=== PATIENT | female | born 1930 | race Caucasian/White ===

== ENCOUNTER 2016-08-02 12:59 | Inpatient (IN) | payer MEDICARE ==
[2016-08-02] VITALS (12 sets, daily range): BP systolic 162–225; BP diastolic 60–90; PULSE 55–88; RESP 18–34; O2SAT 55–99
[~2016-08-02] VITALS: Ht 152.4 cm; Wt 60.7 kg
--- NOTE | 2016-08-02 13:01 | ED.REPORT ---
HPI-Dyspnea / Wheezing Date of Service August 02, 2016 ED Provider: Dr. Juanito Brenner M.D. An 85 year old female with a history of hypertension and atrial fibrillation presents to the ED via EMS from her [facility] accompanied by her family with shortness of breath onset two hours ago. The patient denies chest pain or other symptoms. EMS found the patient with a BP of 214/90 and a pulse ox of 80% on RA. She was found to be in atrial fibrillation en route and was given IV diltiazem prior to arrival. The patient has never had similar symptoms in the past. Nursing Notes Stated Complaint: SHORTNESS OF BREATH Nursing Notes Reviewed: Yes Allergies: Coded Allergies: No Known Allergies (Unverified , 08/02/16) Scheduled Ascorbate Calcium (Vitamin C) 500 Mg Tablet 500 MG PO DAILY Aspirin (Aspirin) 81 Mg Tablet 81 MG PO DAILY Atorvastatin (Lipitor) 20 Mg Tablet 20 MG PO DAILY Calcium Carbonate/Vitamin D3 (Calcium 500 + Vit D 400 Tablet) 1 Each Tablet 1 EACH PO DAILY Cholecalciferol (Vitamin D3) (Vitamin D) 50,000 Unit Capsule 50,000 UNIT PO 2x/ month Diltiazem (Diltiazem) 60 Mg Tablet 60 MG PO BID Donepezil (Donepezil) 10 Mg Tablet 10 MG PO HS Hypromellose (Systane Gel) 10 Gm Gel..gram. 1 APPLIC OCULAR QID Levothyroxine (Levothyroxine) 75 Mcg Tablet 75 MCG PO DAILY Memantine HCl (Namenda-XR) 28 Mg Cap.spr.24 28 MG PO HS Ofloxacin (Ofloxacin) 5 Ml Drops 1 DROP OCULAR QID [place]-3/Dha/Epa/Fish Oil (Fish Oil 500 mg Softgel) 1 Each Capsule 3 EACH PO DAILY Oxybutynin Chloride ER (Oxybutynin Chloride ER) 10 Mg Tab.er.24 10 MG PO DAILY Prednisolone Acetate (Prednisolone Acetate) 5 Ml Drops.susp 1 DROP OCULAR QID Scheduled PRN Acetaminophen (Acetaminophen) 325 Mg Capsule 1-2 EACH PO Q4H PRN PRN For Pain Dextran 70/Hypromellose/Pf (Artificial Tears Drops) 1 Each Droperette 1 DROP BOTH_EYES QID PRN PRN For Eye Irritation Docusate Sodium (Colace) 100 Mg Capsule 100 MG PO DAILY PRN PRN For Constipation General Time Seen by MD: 13:01 Chief Complaint Shortness of breath Hx Obtained From: Patient Arrived By: Ambulance Sudden in Onset?: No Onset Occurred: 1 - 4 hours ago Symptom Duration: Since onset Location: : None Severity: Current: No pain currently Severity: Maximum: No pain Pertinent Negative: Relieved by nothing Recent Healthcare: No recent doctor visit Past Medical History Past Medical History Hypertension Atrial fibrillation Past Surgical History Cataract surgery Smoking History Former Smoker Social History Lives at [place] Other Social History: Good social support, Lives in [facility] Ambulatory Status Independent Review of Systems Constitutional: Denies: Fever Respiratory: Reports: Shortness of breath, Denies: Non-productive cough Complete sys rev & neg: except as marked. GI: Denies: Diarrhea, Vomiting Physical Exam Initial Vital Signs Vital Signs (First) Date Time Temp Pulse Resp B/P Pulse Ox O2 Delivery O2 Flow Rate FiO2 08/02/16 13:09 36.2 55 31 225/83 55 Room Air 08/02/16 13:31 60 Initial VS: Reviewed Head / Eyes: Atraumatic, Normocephalic ENT: Conjunctiva normal, No scleral icterus Neurologic: Alert, Oriented, Nonfocal Psychiatric: Mood/affect normal, Behavior normal General/Constitutional: Awake, Alert Distress / Hydration: Positive: Distress severe Neck: Supple, Full range of motion Respiratory / Chest: Breath sounds = bilat Resp Distress / Stridor: Positive: Resp distress severe Diminished Breath Sounds: Positive: Decreased bilateral Cardiovascular: Heart rate NL, Regular rhythm, Heart sounds NL Lower Ext Edema: Positive: Bilateral 2+ Abdomen: Soft, Non-tender Skin: No rash Color / Condition: Positive: Diaphoresis present Interpretation & Diagnostics Lab Results Interpretation Result Diagram: 08/02/16 1318 08/02/16 1318 Test 08/02/16 13:18 08/02/16 13:30 08/02/16 13:33 08/02/16 14:01 White Blood Count 13.5th/mm3 (3.8-10.1) Red Blood Count 3.76mil/mm3 (3.90-5.20) Hemoglobin 11.3g/dL (12.0-15.6) Hematocrit 33.1% (35.0-46.0) Mean Corpuscular Volume 88.0fL (81-100) Mean Corpuscular Hemoglobin 30.1pg (27.0-35.0) Mean Corpuscular Hemoglobin Concent 34.1% (32.0-37.0) Red Cell Distribution Width 12.7% (12.3-15.4) Platelet Count 327bil/L (150-400) Neutrophils (%) (Auto) 85.3% (40-74) Lymphocytes (%) (Auto) 7.1% (14-46) Monocytes (%) (Auto) 6.8% (4-12) Eosinophils (%) (Auto) 0.1% (0-5) Basophils (%) (Auto) 0.2% (0-3) Prothrombin Time 10.2sec (8.1-12.5) Prothromb Time International Ratio 0.95ratio D-Dimer 1.31mg/L FEU (<0.50) Sodium Level 120mEq/L (134-144) Potassium Level 4.6mEq/L (3.5-5.2) Chloride Level 81mEq/L (97-108) Carbon Dioxide Level 23mmol/L (18-29) Blood Urea Nitrogen 19mg/dL (8-27) Creatinine 0.79mg/dL (0.57-1.00) Estimat Glomerular Filtration Rate 99mL/min (>59) Glucose Level 312mg/dL (60-99) Calcium Level 8.7mg/dL (8.5-10.1) Magnesium Level 1.8mg/dL (1.6-2.6) Total Bilirubin 0.3mg/dL (0.0-1.2) Aspartate Amino Transf (AST/SGOT) 20U/L (0-50) Alanine Aminotransferase (ALT/SGPT) 12U/L (0-32) Alkaline Phosphatase 106U/L (25-165) Troponin T 0.023ug/L (0.0-0.011) Pro-B-Type Natriuretic Peptide 4317pg/mL (0-738) Total Protein 7.2g/dL (6.4-8.4) Albumin 4.1g/dL (3.4-5.0) Lactic Acid Level 0.9mmol/L (0.4-2.0) Urine Color Yellow (YELLOW) Urine Appearance Hazy (CLEAR,HAZY) Urine pH 6.0 (5.0-8.0) Urine Specific [place] 1.030 (1.003-1.035) Urine Protein 300mg/dL (NEG,TRACE) Urine Glucose (UA) 250mg/dL (NEGATIVE) Urine Ketones Negativemg/dL (NEGATIVE) Urine Occult Blood Trace (NEGATIVE) Urine Nitrite Negative (NEGATIVE) Urine Bilirubin Negative (NEGATIVE) Urine Urobilinogen Normalmg/dL (NORMAL) Urine Leukocyte Esterase Negative (NEGATIVE) Urine RBC 0-2/hpf (0-2) Urine WBC 0-5/hpf (0-5) Urine Epithelial Cells Occasional/hpf (NONE-MOD) Urine Crystals Amorphous urates (NONE Urine Bacteria Few/hpf (NONE-FEW) Urine Hyaline Casts None/lpf (NONE) Urine Granular Casts None seen (NONE SEEN) Urine Waxy Casts None seen (NONE SEEN) Urine Red Blood Cell Casts None seen (NONE SEEN) Urine White Blood Cell Casts None seen (NONE SEEN) Urine Mucus None seen (None Seen) Urine Trichomonas None seen (NONE SEEN) Urine Yeast None (NONE SEEN) Urinalysis Comment None Urine Culture Reflexed Not indicated ECG Interpretation ECG Interpretation: Sinus rhythm rate 73 Probable left atrial enlargement Time: 13:36 Interpreted by: ED physician X-Ray Chest Interpretation Chest Xray Interpretation: IMPRESSION: 1. Cardiomegaly and moderate vascular congestion with probable bilateral effusions and basilar atelectasis is suspicious for pulmonary edema/congestive heart failure and clinical correlation is recommended. 2. Please correlate clinically to exclude a superimposed pneumonia. Dictated by: Manny Sawant M.D. on 08/02/2016 at 12:25 View: Portable, 1 view Interpretation / Wet Read by: Interpret - Radiologist Re-Eval/Medical Decision Re-Evaluation/Progress : Time of Eval: 15:13 Patient Status: Condition improved Re-Evaluation/Progress Note: Discussed with patient and family x-ray and lab results, diagnosis, and plan for admit. Patient agrees with plan for care and all questions were addressed. Consultation : Referral / Consult Name: Jose London Consulted With: Hospitalist Call Returned at: 16:00 Hand Mixer: Agrees with eval, Agrees with plan, Accepts admit Counseled Regarding: Diagnosis, Lab results, Need for admission Discharge & Departure Impression: Primary Impression: Congestive heart failure Congestive heart failure type: unspecified congestive heart failure type Congestive heart failure chronicity: acute Qualified Code: I50.9 - Heart failure, unspecified Disposition: ADMITTED TO HOSPITAL Discharge Condition All VS Reviewed: Yes Condition: Improved Crit Care Except Billable Proc Time Spent: 30-74 minutes Services Performed: Patient management by me, Time spent at bedside, Reviewing test results, Reviewing imaging, Discussing patient care, Documentation in record, Time with fam/surrogate Scribe Attestation Portions of this note were transcribed by Mandie Avery. I, Dr. Brenner, personally performed the history, physical exam, and medical decision-making; I reviewed and confirmed the accuracy of the information in the transcribed note. Signed by: Britney Argueta, 08/02/2016, 17:30 Juanito Brenner MD August 02, 2016 13:01 MANDIE AVERY August 02, 2016 13:04
[2016-08-02] MEDS ORDERED: Albuterol-Ipratropium 3 mL Inhalation Solution NEB ONE (13:10)
[2016-08-02] MEDS ORDERED: MethylprednisoLONE Sodium Succinate 62.5 mg/mL 2 mL Inj IVPUSH ONE (13:10)
[2016-08-02] MEDS ORDERED: Albuterol 2.5 mg/3 mL Inhalation Solution NEB ONE (13:10)
[2016-08-02 13:23] LABS: BASOPHILS % (AUTO) 0.2 % (0-3); EOSINOPHILS % (AUTO) 0.1 % (0-5); MONOCYTES % (AUTO) 6.8 % (4-12); Mean Corpuscular Hemoglobin 30.1 pg (27.0-35.0); NEUTROPHILS % (AUTO) 85.3 % (40-74); Platelet Count 327 bil/L (150-400)
[2016-08-02 13:27] LABS: D-Dimer 1.31 mg/L FEU (<0.50); INR 0.95 ratio
--- NOTE | 2016-08-02 13:28 | DRSVH ---
PROCEDURE: X-RAY CHEST ONE VIEW, PORTABLE ([id number]) INDICATIONS: dyspnea TECHNIQUE: One view of the chest was acquired. COMPARISON: None. FINDINGS: Surgical changes and devices: None. Lungs and pleura: Diffuse hazy bibasilar opacities are identified (left greater than right) with part ial obscuration of the diaphragm. The pulmonary vasculature is increased. There is no large pneumot horax. Mediastinum: Mediastinal contours appear normal. Heart size is enlarged. Thoracic aortic atheroscl erosis is present. Bones and chest wall: No suspicious bony lesions. The bone mineralization is diffusely decreased. Overlying soft tissues appear unremarkable. IMPRESSION: 1. Cardiomegaly and moderate vascular congestion with probable bilateral effusions and basilar atele ctasis is suspicious for pulmonary edema/congestive heart failure and clinical correlation is recomme nded. 2. Please correlate clinically to exclude a superimposed pneumonia. Dictated by: Manny Sawant M.D. on 08/02/2016 at 12:25 Approved by: Manny Sawant M.D. on 08/02/2016 at 12:26
[2016-08-02 13:33] LABS: TROPONIN T 0.023 ug/L (0.0-0.011)
[2016-08-02] MEDS ORDERED: Nitroglycerin 2% 1 Gm Ointment TOPICAL SCH (13:35)
[2016-08-02] MEDS ORDERED: Furosemide 10 mg/mL 2 mL Inj IVPUSH ONE ×2 (13:35→20:55)
[2016-08-02 13:44] LABS: Magnesium 1.8 mg/dL (1.6-2.6)
[2016-08-02 14:28] LABS: APPEARANCE,URINE HAZY (CLEAR,HAZY); COLOR,URINE YELLOW (YELLOW); OCCULT BLOOD,URINE TRACE (NEGATIVE); UROBILINOGEN,URINE NORMAL (NORMAL)
[2016-08-02] MEDS ORDERED: ATOR20TA PO (15:51)
[2016-08-02] MEDS ORDERED: OMEG-83 PO (15:51)
[2016-08-02] MEDS ORDERED: LEVO75TA4 PO (15:51)
[2016-08-02] MEDS ORDERED: MEMA28CA PO (15:51)
[2016-08-02] MEDS ORDERED: DILT60TA PO (15:51)
[2016-08-02] MEDS ORDERED: DONE10TA42 PO (15:51)
[2016-08-02] MEDS ORDERED: OFLO5DRO9 OCULAR (15:51)
[2016-08-02] MEDS ORDERED: ASPI-973 PO (15:51)
[2016-08-02] MEDS ORDERED: PRED5DRO6 OCULAR (15:51)
[2016-08-02] MEDS ORDERED: ASCO-294 PO (15:51)
[2016-08-02] MEDS ORDERED: HYPR10GE4 OCULAR (15:51)
[2016-08-02] MEDS ORDERED: OXYB10TA PO (15:51)
[2016-08-02] MEDS ORDERED: CALC-51 PO (15:51)
[2016-08-02] MEDS ORDERED: ACET325C PO (15:54)
[2016-08-02] MEDS ORDERED: DEXT1DRO8 BOTH_EYES (15:54)
[2016-08-02] MEDS ORDERED: CHOL500050 PO (15:54)
[2016-08-02] MEDS ORDERED: DOCU-41 PO (15:54)
[2016-08-02] MEDS ORDERED: Ondansetron 2 mg/mL 2 mL Inj IVPUSH PRN ×2 (16:05→17:50)
[2016-08-02] MEDS ORDERED: Alum-Mag Hydrox-Simeth 30 mL Suspension PO PRN ×2 (16:05→17:50)
--- NOTE | 2016-08-02 17:41 | NUR ---
ED to [facility] Pt arrived via transporter to room 2028. Pt on 6 L oxymask SPO2 95%, denies SOB. HOB Resting now. Care continues.
[2016-08-02] MEDS ORDERED: Polyethylene Glycol (PEG) 17 Gm Powder PO PRN (17:50)
[2016-08-02] MEDS ORDERED: Senna-Docusate 8.6-50 mg Tablet PO PRN (17:50)
--- NOTE | 2016-08-02 17:54 | DRSVH ---
PROCEDURE: CT ANGIO CHEST PULMONARY EMBOLISM ([id number]) INDICATIONS: CHF TECHNIQUE: After the administration of intravenous contrast, 2 mm thick sections acquired from the pulmonary api riana to the posterior costophrenic angles. 3-dimensional maximum intensity projection (MIP) coronal a nd sagittal reformats were then acquired through the thorax. For radiation dose reduction, the follo wing was used: automated exposure control, adjustment of mA and/or kV according to patient size. COMPARISON: [facility], CR, XR CHEST 1VW (PORTABLE), 08/02/2016, 13:04. FINDINGS: Image quality: Excellent. Pulmonary arteries: Pulmonary arteries are normal in size, and demonstrate no intraluminal filling d efects to suggest central pulmonary embolism. Lungs and pleura: There are bilateral [id number] pleural effusions with bibasilar compression atelectasis. There is bilateral subpleural septal thickening and mild ground glass opacity compatibl e with pulmonary edema. No pneumothorax. Central and peripheral airways are patent. Mediastinum: Heart is mildly prominent, without pericardial effusion. No mediastinal or hilar adeno salina. Thoracic aorta is normal in caliber and enhancement. Atherosclerosis. Esophagus is normal in caliber. Small hiatal hernia. Bones and chest wall: No suspicious bony lesions. Ribs and thoracic spine appear intact throughout. Thyroid gland is normal. No axillary or supraclavicular adenopathy. Abdomen: Visualized upper abdominal solid organs appear normal in the early arterial phase of enhanc ement. IMPRESSION: 1. No evidence for central pulmonary emboli. 2. Small to moderate bilateral pleural effusions with bibasilar compression atelectasis. 3. Mild pulmonary edema consistent with clinical diagnosis of CHF. 4. Small hiatal hernia. Dictated by: Yohannes Painter M.D. on 08/02/2016 at 17:48 Approved by: Yohannes Painter M.D. on 08/02/2016 at 17:53
[2016-08-02] MEDS ORDERED: PrednisoLONE 1% 1 mL Ophthalmic Suspension BOTH_EYES SCH (18:30)
[2016-08-02] MEDS ORDERED: Artificial Tears 15 mL Ophthalmic Solution BOTH_EYES PRN (18:30)
--- NOTE | 2016-08-02 18:56 | NUR ---
Eye drops Pt daughter concerned about eye drops for pt's Right Eye. Pt had cataract surgery on 07/27 per daughter, pt has not had her drops all day. Notified MD. Daughter willing to bring medications from home if needed. Care continues.
[2016-08-02] MEDS ORDERED: DILTIAZEM 60 MG PO SCH (20:30)
--- NOTE | 2016-08-02 20:41 | PCM.HPMED ---
Subjective Date of Service August 02, 2016 Primary Provider: Admitting Physician: Jose London Primary Care Physician: Sagrario Carrera PA-C Attending Physician: Jose London Admit Status: From the Emergency Department Chief Complaint: Shortness of breath History of Present Illness: Ms. Galdamez is an 85-year-old lady with a history of hypertension, hyperlipidemia, and memory loss who presented to the emergency department from [facility] with increasing shortness of breath for the past week. She is accompanied by her her daughter Sugey, who is also DPOA and history obtained from patient and daughter. Patient has limited records within our EMR. Per her daughter, patient's shortness of breath historically has been only with exertion. However, she notes a steady decline in the past 6 months to a year with decreased stamina and dyspnea at rest for the past week. Patient denies associated symptoms including: chest pain, palpitation, cough, orthopnea , lower extremity edema, fever or chills. She states that she smoked tobacco from age 41 to 61 and denies diagnosis of COPD. Daughter reports mild dementia and denies history of diabetes, atrial fibrillation and COPD but notes increased urinary incontinence. Patient denies dysuria, hematuria, back or flank pain, diarrhea and constipation. Of note patient states that she had cataract surgery on 07/28. She states that she tolerated the procedure well and it was without complications. Both patient and daughter report elevated blood pressure prior and her diltiazem increased to 60mg twice daily by her PCP. Despite this increase she continued to have elevated blood pressures. She reports a change in vision following her cataract surgery but denies headaches, dizziness, numbness, tingling or focal weakness. Per medics, atrial fibrillation noted on ECG in the field. She was given diltiazem and ECG here showed normal sinus rhythm with rate of 73 and probable left atrial enlargement but no acute ischemic changes. Chest xray showing cardiomegaly and pulmonary edema. CT angio is negative for pulmonary embolism and showing mild pulmonary edema and bilateral pleural effusions. In the ED: vitals 36.2, BP 225/83, HR 55, SpO2 55% on room air, 95% on Bipap, Labs: troponin 0.023, proBNP 4317, wbc 13.5, Hb 11.3, Hct 33.1, plts 327, sodium 120, potassium 4.6, chloride 81, bicarb 23, BUN 19, creatinine 0.79, glucose 213, lactic acid 0.9. She was given Solu-medol 125mg IV, duonebs, 20mg IV furosemide. Review of Systems: A comprehensive review of systems was conducted with the patient and found to be negative except as above in the History of Present Illness. Allergies Coded Allergies: No Known Allergies (Unverified , 08/02/16) Home Medications Ascorbate Calcium 500 MG PO DAILY Aspirin 81 MG PO DAILY Atorvastatin 20 MG PO DAILY Calcium Carbonate/Vitamin D3 1 EACH PO DAILY Cholecalciferol (Vitamin D3) 50,000 UNIT PO 2x/month Diltiazem 60 MG PO BID Donepezil 10 MG PO HS Hypromellose 1 APPLIC OCULAR QID Levothyroxine 75 MCG PO DAILY Memantine HCl 28 MG PO HS Ofloxacin 5 Ml Drops 1 DROP OCULAR QID [place]-3/Dha/Epa/Fish Oil 3 EACH PO DAILY Oxybutynin Chloride ER 10 MG PO DAILY Prednisolone Acetate 5 Ml Drops.susp 1 DROP OCULAR QID Acetaminophen1-2 EACH PO Q4H PRN For Pain Dextran 70/Hypromellose/Pf 1 Each Droperette 1 DROP BOTH_EYES QID PRN For Eye Irritation Docusate Sodium 100 MG PO DAILY PRN For Constipation PMH Essential Hypertension Hyperlipidemia Hypothyroidism Memory loss Hyperglycemia, without diagnosis of diabetes ? Chronic kidney disease, stage 3. BUN/creatinine 17/0.88 on 06/26/16 in [facility] Possible Atrial fibrillation- patient denies, noted by medics on EKG in the field. NSR on arrival. Possible Carotid artery disease-via chart review, recent visit with PCP and ultrasound ordered, not resulted. Vitamin B12 deficiency Osteoporosis Surgical History Cataract surgery (07/27/16) Bilateral knee replacements Family History Patient reports mother and father with heart failure. Denies history of diabetes or cancer. Social History Hx Alcohol Use: Yes (2 glasses of wine/night) Hx Substance Use: No Smoking Status: Former Smoker (Quit 25 yrs ago. ) Living Arrangement: Assisted Living Exam Vital Signs Vital Sign - Last Date Time Temp Pulse Resp B/P Pulse Ox O2 Delivery O2 Flow Rate FiO2 08/02/16 17:45 36.7 82 18 192/90 95 Room Air 08/02/16 17:25 6 5/10/17 13:33 60 Exam General: Elderly female in mild respiratory distress with Bipap mask in place, well nourished, communicating appropriately. HEENT: Normocephalic, atraumatic. External ears without defect. Pupils equal, round, and reactive to light and accommodation. Anicteric sclerae, moist conjunctivae, Oral mucosa moist/pink. Neck: Supple, nontender, difficult to asses JVD due to body habitus but did not appreciate JVD for carotid bruits. No lymphadenopathy or thyromegaly. Cardiovascular: Regular rate and rhythm with no murmurs, rubs, or gallops appreciated Pulmonary: Symmetric chest rise with equal air entry bilaterally, lungs coarse with diffuse crackles, no wheezing. Conversational dyspnea. Abdomen: Bowel tones present. Soft, protuberant, nontender, mildly distended. No hepatosplenomegaly or masses appreciated. Extremities: No clubbing, cyanosis, or edema. Skin: Normal temperature, turgor, and texture; no rashes or ulcerations. Neurological: Cranial nerves grossly intact. No focal deficits. Ambulates with a walker at baseline. Psychiatric: Normal mood and affect. Alert and oriented to person, place, and time. Lab and Diagnostics Labs Laboratory Tests Test 08/02/16 13:18 08/02/16 13:33 08/02/16 14:01 White Blood Count 13.5th/mm3 (3.8-10.1) Red Blood Count 3.76mil/mm3 (3.90-5.20) Hemoglobin 11.3g/dL (12.0-15.6) Hematocrit 33.1% (35.0-46.0) Mean Corpuscular Volume 88.0fL (81-100) Mean Corpuscular Hemoglobin 30.1pg (27.0-35.0) Mean Corpuscular Hemoglobin Concent 34.1% (32.0-37.0) Red Cell Distribution Width 12.7% (12.3-15.4) Platelet Count 327bil/L (150-400) Neutrophils (%) (Auto) 85.3% (40-74) Lymphocytes (%) (Auto) 7.1% (14-46) Monocytes (%) (Auto) 6.8% (4-12) Eosinophils (%) (Auto) 0.1% (0-5) Basophils (%) (Auto) 0.2% (0-3) Prothrombin Time 10.2sec (8.1-12.5) Prothromb Time International Ratio 0.95ratio D-Dimer 1.31mg/L FEU (<0.50) Sodium Level 120mEq/L (134-144) Potassium Level 4.6mEq/L (3.5-5.2) Chloride Level 81mEq/L (97-108) Carbon Dioxide Level 23mmol/L (18-29) Blood Urea Nitrogen 19mg/dL (8-27) Creatinine 0.79mg/dL (0.57-1.00) Estimat Glomerular Filtration Rate 99mL/min (>59) Glucose Level 312mg/dL (60-99) Calcium Level 8.7mg/dL (8.5-10.1) Magnesium Level 1.8mg/dL (1.6-2.6) Total Bilirubin 0.3mg/dL (0.0-1.2) Aspartate Amino Transf (AST/SGOT) 20U/L (0-50) Alanine Aminotransferase (ALT/SGPT) 12U/L (0-32) Alkaline Phosphatase 106U/L (25-165) Troponin T 0.023ug/L (0.0-0.011) Pro-B-Type Natriuretic Peptide 4317pg/mL (0-738) Total Protein 7.2g/dL (6.4-8.4) Albumin 4.1g/dL (3.4-5.0) Lactic Acid Level 0.9mmol/L (0.4-2.0) Urine Color Yellow (YELLOW) Urine Appearance Hazy (CLEAR,HAZY) Urine pH 6.0 (5.0-8.0) Urine Specific [place] 1.030 (1.003-1.035) Urine Protein 300mg/dL (NEG,TRACE) Urine Glucose (UA) 250mg/dL (NEGATIVE) Urine Ketones Negativemg/dL (NEGATIVE) Urine Occult Blood Trace (NEGATIVE) Urine Nitrite Negative (NEGATIVE) Urine Bilirubin Negative (NEGATIVE) Urine Urobilinogen Normalmg/dL (NORMAL) Urine Leukocyte Esterase Negative (NEGATIVE) Urine RBC 0-2/hpf (0-2) Urine WBC 0-5/hpf (0-5) Urine Epithelial Cells Occasional/hpf (NONE-MOD) Urine Crystals Amorphous urates (NONE Urine Bacteria Few/hpf (NONE-FEW) Urine Hyaline Casts None/lpf (NONE) Urine Granular Casts None seen (NONE SEEN) Urine Waxy Casts None seen (NONE SEEN) Urine Red Blood Cell Casts None seen (NONE SEEN) Urine White Blood Cell Casts None seen (NONE SEEN) Urine Mucus None seen (None Seen) Urine Trichomonas None seen (NONE SEEN) Urine Yeast None (NONE SEEN) Urinalysis Comment None Urine Culture Reflexed Not indicated Result Diagram: 08/02/16 1318 08/02/16 1318 X-Rays, CTs and MRIs (08/02/16) X-RAY CHEST ONE VIEW, PORTABLE IMPRESSION: 1. Cardiomegaly and moderate vascular congestion with probable bilateral effusions and basilar atelectasis is suspicious for pulmonary edema/congestive heart failure and clinical correlation is recommended. 2. Please correlate clinically to exclude a superimposed pneumonia. Dictated and approved by: Manny Sawant M.D. on 08/02/2016 at 12:25 (08/02/16) CT ANGIO CHEST PULMONARY EMBOLISM IMPRESSION: 1. No evidence for central pulmonary emboli. 2. Small to moderate bilateral pleural effusions with bibasilar compression atelectasis. 3. Mild pulmonary edema consistent with clinical diagnosis of CHF. 4. Small hiatal hernia. Dictated and approved by: Yohannes Painter M.D. on 08/02/2016 at 17:48 Assessment & Plan 85y/o female with a history of hypertension, hyperlipidemia, and memory loss who presented to the emergency department from [facility] with increasing shortness of breath for the past week. Admitted for probable exacerbation of congestive heart failure and rule out ACS as well as pulmonary embolism. 1. Acute hypoxic respiratory failure, present on admission. Active. -Likely secondary to CHF. Differential includes pulmonary embolism, pneumonia, or less likely asthma/COPD exacerbation. -CT angio- negative for pulmonary embolism. Pulmonary edema/pleural effusions on CXR and CT angio. -WBC 13.5, lactic acid 0.9 -pneumonia less likely -proBNP 4317 -Duonebs q4h prn -Tx underlying cause 2. CHF exacerbation, likely acute on chronic. Present on admission. Active -Uncertain etiology, no prior Echo. Possibly secondary to hypertension, coronary artery disease, or Afib. -proBNP 4317, troponin 0.023 -ECG, CXR and CT angio, as above. -s/p 40mg IV furosemide in the ED -Monitor I/Os, daily weights -Continue diuresis, IV lasix. -Start ACEi, beta royer. -Continue home statin, aspirin -Echocardiogram ordered 3. Hyponatremia. Present on admission. Active. -Likely secondary to CHF. Management as above. -Sodium 120, potassium 5.0 -Check serum and urine osmolality -Fluid restriction -BMP q4h 4. Elevated troponin, present on admission. Active. -Likely due to demand ischemia secondary to hypoxia, hypertension, respiratory failure. Patient without chest pain. -No known hx of coronary artery disease, possible carotid artery stenosis noted at PCP last month, ultrasound ordered- no results. -Will trend 5. Hyperglycemia. Present on admission. Active -No known diagnosis of diabetes, glucose 94 ([facility] 06/26/16) -Glucose 213, 312 -HbA1c pending -Follow CMP -Low dose correctional insulin lispro 6. Possible atrial fibrillation, present on admission. Active. -ECG by medics en route reportedly showed atrial fibrillation. Patient was given diltiazem prior to arrival. -Patient in NSR, rate 70-80s. ECG showed possible left atrial enlargement, no acute ischemic changes. -Admit with telemetry -Continue home aspirin -Echocardiogram ordered 7. Hypertension, chronic. Present on admission. Active. -BP 225/83 at presentation -Continue home diltiazem, 60mg twice daily -Beta-royer, ACEi and diuresis, as above. 8. Hyperlipidemia, chronic. Present on admission. Presumed stable. -Continue home atorvastatin 9. Mild dementia, chronic. Present on admission. Active. -Continue home donepezil, memantine 10. Hypothyroidism, chronic. Present on admission. Presumed stable. -Continue home levothyroxine Acetaminophen-fever/headache/mild/moderate pain Antiemetics, as needed Bowel regimen, as needed. Disposition: Patient admitted under inpatient status with expected length of stay > 2 midnights for severity of present symptoms, complexities of treatment plan and risk for adverse event. Pain Evaluation: Adequate Pain Control VTE Prophylaxis: Sub-Q Heparin (Unfractionated) Resuscitation Status: CPR: Attempt Resuscitation Attending Statement The patient was seen and examined together with Resident/House-staff on 08/02/16 and I agree with the history, exam and plan as outlined in the note above. Caryl Key DO August 02, 2016 17:56 Jose London August 17, 2016 17:10
[2016-08-02] MEDS ORDERED: Albuterol-Ipratropium 3 mL Inhalation Solution NEB PRN (20:50)
[2016-08-02 21:25] LABS: OSMOLALITY, URINE 580 mOs/kH2O (250-1200)
[2016-08-02] MEDS: Artificial Tears 15 mL Ophthalmic Solution AFFECT_EYE SCH (22:13)
[2016-08-02] MEDS: Sodium Chloride LOK Flush 10 mL Syringe IVFLUSH SCH (22:16)
[2016-08-03] VITALS (12 sets, daily range): BP systolic 141–168; BP diastolic 61–77; PULSE 74–86; RESP 14–22; O2SAT 95–99
[2016-08-03] MEDS: PrednisoLONE 1% 5 mL Ophthalmic Suspension BOTH_EYES SCH ×5 (00:41→20:07)
--- NOTE | 2016-08-03 01:54 | NUR ---
BiPAP Pt c/o SOB at start of shift, on 6L oxy-mask. Pt and pt family stated she was eating and may have aspirated a small amount of liquid. Pt's sats were stable in low 90's after O2 increased to 9L oxy mask. Pt requested to go on BiPAP @ that point. Pt sating high 90's on 50% FIO2. No other issues noted at this time. Addendum: 08/03/16 at 0614 by KANE SIMPSON RN Pt slept extremely well with BiPAP on all night. Pt removed from BiPAP around 0500 and put back on 6L oxy-mask with no issues.
[2016-08-03 03:23] LABS: Phosphorus 4.8 mg/dL (2.5-4.9)
[2016-08-03] MEDS: Artificial Tears 15 mL Ophthalmic Solution AFFECT_EYE SCH ×4 (05:00→20:06)
[2016-08-03 08:05] LABS: BASOPHILS % (AUTO) 0 % (0-3); EOSINOPHILS % (AUTO) 0.1 % (0-5); MONOCYTES % (AUTO) 1.9 % (4-12); Mean Corpuscular Hemoglobin 30.3 pg (27.0-35.0); Mean Corpuscular Volume 88.9 fL (81-100); NEUTROPHILS % (AUTO) 92.4 % (40-74); Platelet Count 265 bil/L (150-400)
[2016-08-03] MEDS: Sodium Chloride LOK Flush 10 mL Syringe IVFLUSH SCH ×2 (08:11→16:08)
[2016-08-03] MEDS: Heparin 5,000 Unit/mL Inj SUBQ SCH ×2 (08:11→16:07)
--- NOTE | 2016-08-03 13:27 | PCM.PNMED ---
Subjective Date of Service August 03, 2016 Subjective 85y/o female with a history of hypertension, hyperlipidemia, and memory loss who presented to the emergency department from [facility] living [facility] with increasing shortness of breath for the past week. Admitted for probable exacerbation of congestive heart failure and rule out ACS as well as pulmonary embolism. Admitted to [facility] with telemetry on 6L oxymask. Per nursing, patient reported shortness of breath with the oxymask. O2 sats stable in low 90s with increase to 9L but patient requested to go back on Bipap. She is back on 6L oxymask this morning without issues and maintaining oxygen sats in mid 90s. She states that her breathing has improved overnight and she is without complaint. She denies chest pain, abdominal pain, nausea or vomiting. Patient's daughter reports possible aspiration of oral secretions last night and states that this is a new occurrence with one prior episode at home. Exam Vital Signs Vital Sign - Last Date Time Temp Pulse Resp B/P Pulse Ox O2 Delivery O2 Flow Rate FiO2 08/03/16 11:19 37.0 85 18 152/70 98 OxyMask 6.00 08/03/16 00:31 50 Intake and Output 08/02/16 08/02/16 08/03/16 Cumulative From/Thru 15:00 23:00 07:00 08/02/16 13:09 - 08/03/16 05:21 Intake Total 100 ml 100 ml Output Total 1100 ml 1100 ml Balance -1000 ml -1000 ml Intake Oral 100 ml 100 ml Output Urine Total 1100 ml 1100 ml # Bowel Movements 1 1 Exam General: Elderly female in no acute distress on 6L oxymask, well nourished, communicating appropriately, speaking in full sentences. HEENT: Normocephalic, atraumatic. Pupils equal, round, and reactive to light and accommodation. Anicteric sclerae, moist conjunctivae, Oral mucosa moist/ pink. Neck: Supple, nontender, difficult to asses JVD due to body habitus but did not appreciate JVD for carotid bruits. Cardiovascular: Regular rate and rhythm with no murmurs, rubs, or gallops appreciated Pulmonary: Symmetric chest rise with equal air entry bilaterally, lungs coarse with mild bibasilar crackles, no wheezing. Abdomen: Bowel tones present. Soft, protuberant, nontender,nondistended. Extremities: Trace edema of the feet bilaterally. No clubbing, cyanosis. Skin: Normal temperature, turgor, and texture; no rashes or ulcerations. Neurological: Cranial nerves grossly intact. No focal deficits. Ambulates with a walker at baseline. IVs and Medications Medications Reviewed: Medications were reviewed in detail Lab and Diagnostics Laboratory Tests Test 08/02/16 13:30 08/02/16 13:33 08/02/16 13:54 08/02/16 14:01 Hemoglobin A1c 5.7% (4.8-5.6) Lactic Acid Level 0.9mmol/L (0.4-2.0) Urine Osmolality 580mOs/kH2O (250-1200) Urine Random Sodium 48mEq/L Osmolality 262 (275-300) Urine Color Yellow (YELLOW) Urine Appearance Hazy (CLEAR,HAZY) Urine pH 6.0 (5.0-8.0) Urine Specific [place] 1.030 (1.003-1.035) Urine Protein 300mg/dL (NEG,TRACE) Urine Glucose (UA) 250mg/dL (NEGATIVE) Urine Ketones Negativemg/dL (NEGATIVE) Urine Occult Blood Trace (NEGATIVE) Urine Nitrite Negative (NEGATIVE) Urine Bilirubin Negative (NEGATIVE) Urine Urobilinogen Normalmg/dL (NORMAL) Urine Leukocyte Esterase Negative (NEGATIVE) Urine RBC 0-2/hpf (0-2) Urine WBC 0-5/hpf (0-5) Urine Epithelial Cells Occasional/hpf (NONE-MOD) Urine Crystals Amorphous urates (NONE Urine Bacteria Few/hpf (NONE-FEW) Urine Hyaline Casts None/lpf (NONE) Urine Granular Casts None seen (NONE SEEN) Urine Waxy Casts None seen (NONE SEEN) Urine Red Blood Cell Casts None seen (NONE SEEN) Urine White Blood Cell Casts None seen (NONE SEEN) Urine Mucus None seen (None Seen) Urine Trichomonas None seen (NONE SEEN) Urine Yeast None (NONE SEEN) Urinalysis Comment None Urine Culture Reflexed Not indicated Test 08/02/16 18:35 08/03/16 00:00 08/03/16 02:19 08/03/16 10:00 Sodium Level 120mEq/L (134-144) 123mEq/L (134-144) Potassium Level 5.0mEq/L (3.5-5.2) 5.2mEq/L (3.5-5.2) Chloride Level 82mEq/L (97-108) 84mEq/L (97-108) Carbon Dioxide Level 23mmol/L (18-29) 26mmol/L (18-29) Blood Urea Nitrogen 18mg/dL (8-27) 19mg/dL (8-27) Creatinine 0.74mg/dL (0.57-1.00) 0.81mg/dL (0.57-1.00) Estimat Glomerular Filtration Rate 107mL/min (>59) 96mL/min (>59) Glucose Level 204mg/dL (60-99) 181mg/dL (60-99) Calcium Level 8.7mg/dL (8.5-10.1) 8.6mg/dL (8.5-10.1) Hold Purple Top Tube Received (Received) Hold [place] Top Tube Received (Received) White Blood Count 9.4th/mm3 (3.8-10.1) Red Blood Count 3.60mil/mm3 (3.90-5.20) Hemoglobin 10.9g/dL (12.0-15.6) Hematocrit 32.0% (35.0-46.0) Mean Corpuscular Volume 88.9fL (81-100) Mean Corpuscular Hemoglobin 30.3pg (27.0-35.0) Mean Corpuscular Hemoglobin Concent 34.1% (32.0-37.0) Red Cell Distribution Width 12.9% (12.3-15.4) Platelet Count 265bil/L (150-400) Neutrophils (%) (Auto) 92.4% (40-74) Lymphocytes (%) (Auto) 5.5% (14-46) Monocytes (%) (Auto) 1.9% (4-12) Eosinophils (%) (Auto) 0.1% (0-5) Basophils (%) (Auto) 0% (0-3) Phosphorus Level 4.8mg/dL (2.5-4.9) Troponin T 0.025ug/L (0.0-0.011) < 0.010ug/L (0.0-0.011) Albumin 3.8g/dL (3.4-5.0) Triglycerides Level 54mg/dL (0-149) Cholesterol Level 170mg/dL (100-199) LDL Cholesterol, Calculated 54.200mg/dL (0-99) VLDL Cholesterol 10.800mg/dL HDL Cholesterol 105mg/dL (>39) Cholesterol/HDL Ratio 1.62 (0.0-4.4) Procalcitonin 0.08ng/mL (0.00-0.08) Result Diagram: 08/03/1621808/03/16218 X-Rays, CTs and MRIs (08/02/16) X-RAY CHEST ONE VIEW, PORTABLE IMPRESSION: 1. Cardiomegaly and moderate vascular congestion with probable bilateral effusions and basilar atelectasis is suspicious for pulmonary edema/congestive heart failure and clinical correlation is recommended. 2. Please correlate clinically to exclude a superimposed pneumonia. Dictated and approved by: Manny Sawant M.D. on 08/02/2016 at 12:25 (08/02/16) CT ANGIO CHEST PULMONARY EMBOLISM IMPRESSION: 1. No evidence for central pulmonary emboli. 2. Small to moderate bilateral pleural effusions with bibasilar compression atelectasis. 3. Mild pulmonary edema consistent with clinical diagnosis of CHF. 4. Small hiatal hernia. Dictated and approved by: Yohannes Painter M.D. on 08/02/2016 at 17:48 Assessment & Plan 85y/o female with a history of hypertension, hyperlipidemia, and memory loss who presented to the emergency department from [facility] with increasing shortness of breath for the past week. Admitted for probable exacerbation of congestive heart failure and rule out ACS as well as pulmonary embolism. 1. Acute hypoxic respiratory failure, present on admission. Active. -Likely secondary to CHF. Differential includes pulmonary embolism, pneumonia, or less likely asthma/COPD exacerbation. -CT angio- negative for pulmonary embolism. Pulmonary edema/pleural effusions on CXR and CT angio. -WBC 9.4, lactic acid 0.9 -pneumonia less likely -proBNP 4317 -Duonebs q4h prn -Tx underlying cause 2. CHF exacerbation, likely acute on chronic. Present on admission. Active -Uncertain etiology, no prior Echo. Possibly secondary to hypertension, coronary artery disease, or Afib. -proBNP 4317, troponin 0.023 on admission and < 0.01 today -ECG, CXR and CT angio, as above. -s/p 20mg IV furosemide in the ED, another 20mg IV on the floor -Monitor I/Os, daily weights -Continue diuresis, IV lasix. -Start ACEi, consider adding beta royer, pending echo results -Continue home statin, aspirin -Echocardiogram, pending. 3. Hyponatremia. Present on admission. Active. -Likely secondary to CHF. Management as above. -Sodium 120, potassium 5.0 -Check serum and urine osmolality -Fluid restriction 1L -BMP q4h 4. Elevated troponin, present on admission. Resolved. -Likely due to demand ischemia secondary to hypoxia, hypertension, respiratory failure. Patient without chest pain. -No known hx of coronary artery disease, possible carotid artery stenosis noted at PCP last month, ultrasound ordered- no results. -Trended down. Negative this morning. 5. Hyperglycemia. Present on admission. Active -No known diagnosis of diabetes, glucose 94 ([employer] 06/26/16) -Glucose 213, 312 now 181 -HbA1c 5.7 -Low dose correctional insulin lispro 6. Possible atrial fibrillation, present on admission. Active. -ECG by medics en route reportedly showed atrial fibrillation. Patient was given diltiazem prior to arrival. -Patient in NSR, rate 70-80s. ECG showed possible left atrial enlargement, no acute ischemic changes. -Continue home aspirin -Echocardiogram, pending 7. Hypertension, chronic. Present on admission. Active. -BP 225/83 at presentation -Continue home diltiazem, pending echo results. -Beta-royer, ACEi and diuresis, as above. 8. Hyperlipidemia, chronic. Present on admission. Presumed stable. -Continue home atorvastatin 9. Mild dementia, chronic. Present on admission. Active. -Continue home donepezil, memantine 10. Hypothyroidism, chronic. Present on admission. Presumed stable. -Continue home levothyroxine Acetaminophen-fever/headache/mild/moderate pain Antiemetics, as needed Bowel regimen, as needed. Disposition: Patient will likely discharge in 1-2 days pending echocardiogram results and improvement in respiratory status. VTE Prophylaxis: Sub-Q Heparin (Unfractionated) Resuscitation Status: CPR: Attempt Resuscitation Attending Statement The patient was seen and examined together with Resident/House-staff on 08/03/16 and I agree with the history, exam and plan as outlined in the note above. Caryl Key DO August 03, 2016 13:27 Jose London August 17, 2016 17:20
--- NOTE | 2016-08-03 14:25 | NUR ---
Social Work: Initial Assessment D: Per EMR review, pt is an 85 year old female admitted for Congestive Heart Failure. Pt is listed as a self-pay insurance however pt's daughter states pt has a [facility] Medicare insurance. Pt has no [place] insurance or [place] beneifts. PCP is VANESA Gomez and DPOA is Sugey Richards dtr. Advanced directives completed and requested for pt's chart. Readmit score is moderate, 4/8. DAY CAMP UNIT LEADER met with pt's daughter at bedside. Sw role explained and contact info provided. Pt is from [facility]. Prior to admission, pt was I with most ADLs however she has been struggling with ambulation due to her disease process. Family does not wish for the pt to return to [facility] and are making arrangement for her to go to [facility] for rehab. They have been in contact with the admissions staff and understand that the pt may need to pay privately due to her observation status. DAY CAMP UNIT LEADER reviewed pt's chart [id number] Addendum: 08/03/16 at 1457 by RAFAEL LAM Amended: Links added. Addendum: 08/04/16 at 1139 by RAFAEL M HALTERMA SS Note entered prematurely; see above note for completed assessment.
--- NOTE | 2016-08-03 14:33 | DRSVH ---
[facility] [address] [place] [address] Echocardiogram Report Name: RO BAILEY Date: 01/2017 Height: 60 in Hospital Exam Location: [facility] Weight: 143 lb Gender: Female BSA: 1.6 m2 : 1930 Age: 85 yrs BP: 165/68 mmHg Reason For Study: CHF Ordering Physician: Performed By: Carmen Salvador [facility] HOSPITALIST / MARIKA Referring Physician: Ronald JASON Interpretation Summary The left ventricle is normal in size. The ejection fraction is estimated to be 55-60%. The right ventricle is borderline dilated. The right ventricular systolic function is normal. There is moderate tricuspid regurgitation. The right ventricular systolic pressure is estimated at 30 mmHg assuming a right atrial pressure of 3 mm Hg. Mild atherosclerotic plaque(s) in the ascending aorta. There is a moderate left-sided pleural effusion. There is a small right-sided pleural effusion. Procedure: A two-dimensional transthoracic echocardiogram with color flow and Doppler was performed. The study quality was technically adequate. There is no prior echocardiogram noted for this patient. The patient was in normal sinus rhythm during the exam. Left Ventricle: The left ventricle is normal in size. There is normal left ventricular wall thickness. There is no thrombus. The ejection fraction is estimated to be 55-60%. There are no focal wall motion abnormalities. Spectral Doppler of the mitral valve is reversed, with an E/A wave ratio < 1.0. Right Ventricle: The right ventricle is borderline dilated. The right ventricle appears to be hypertrophied. The right ventricular systolic function is normal. Atria: The left atrium is mildly dilated. The right atrium is moderately dilated. There is no Doppler evidence for an atrial septal defect. Mitral Valve: There is mild mitral annular calcification. The mitral valve leaflets are mildly calcified. There is mild mitral regurgitation. Aortic Valve: The aortic valve is trileaflet. The aortic valve is mildly calcified. There is no aortic valve stenosis. No aortic regurgitation is present. Tricuspid Valve: Tricuspid leaflets are thickened. There is moderate tricuspid regurgitation. The right ventricular systolic pressure is estimated at 30 mmHg assuming a right atrial pressure of 3 mm Hg. Pulmonic Valve: The pulmonic valve is not well seen, but is grossly normal. There is trace pulmonic regurgitation. Great Vessels: The aortic root is normal size. There is aortic root sclerosis/calcification. The dimensions of the ascending aorta are normal. Mild atherosclerotic plaque(s) in the ascending aorta. The pulmonary artery is normal size. The IVC is of normal diameter and collapses greater than 50% with a sniff. This suggests a low right atrial pressure of 3 mm Hg. Pericardium/ Pleura There is a trivial pericardial effusion noted. There is an anterior echo-free space consistent with a fat pad. There are no echocardiographic indications of cardiac tamponade. There is a small right- sided pleural effusion. There is a moderate left-sided pleural effusion. MMode/2D Measurements & Calculations LVIDd: 5.2 cm LA dimension: 4.1 cm RA long axis LVOT diam: 2.2 cm LVIDs: 4.0 cm AoV Opening FS: 23.0 % LA A2 area: 19.7 cm RA area EPSS: 1.3 cm LA A4 area: 25.3 cm Ao root diam IVSd: 1.1 cm LA length (vol) : 22.6 cm LVPWd: 1.0 cm RA vol Aortic Jxn: 2.3 cm LA vol: 66.2 ml : 78.4 ml asc Aorta Diam LA vol index RA : 48.5 mm2 Ao Arch Diam (Prox Trans): 2.1 cm IVC diam: 2.0 cm LV dang. diameter/BSA LV sys. diameter/BSA RVD2 (mid) (cm/m^2): 3.2 (cm/m^2): 2.5 : 3.2 cm Doppler Measurements & Calculations Ao V2 max MV E max luther MV E/A: 0.88 TR max luther : 169.4 cm/sec : 118.4 cm/sec Med Peak E' Luther : 261.7 cm/sec Ao max P.5 mmHg MV A max luther TR max PG Ao mean P.1 mmHg : 134.2 cm/sec E/E' med: 21.0 : 27.4 mmHg LVOT Max Luther MV P1/2t: 49.6 msec Lat Peak E' Luther PA V2 max : 91.1 cm/sec : 63.8 cm/sec E/E' lat: 20.5 PA mean PG CLARISSA(I,D): 1.9 cm E/e' average : 1.00 mmHg sev ratio: 0.51 PA Accel Time Pulm A Revs Dur : 0.13 sec MV A dur : 0.14 sec MV P1/2t max luther Ao V2 mean LV V1 max PG PA V2 mean : 129.9 cm/sec : 48.6 cm/sec Ao V2 VTI: 39.4 cm LV V1 VTI MVA(P1/2t): 4.4 cm2 : 19.9 cm CLARISSA(V,D): 2.0 cm2 CLARISSA indexed to BSA Pulm A Revs Dur - MV A (cm^2/m^2): 1.2 Dur: 0.00 msec Reading Physician:PRUDENCE
--- NOTE | 2016-08-03 14:47 | NUR ---
Social Work: Initial Assessment D: Per EMR review, pt is an 85 year old female admitted for Congrestive Heart Failure. Pt is [facility] [employer]; pt has no LT insurance or VA benefits. PCP is Sagrario Carrera PA-C. NOK is Sugey Richards, dtr, .. Advanced directives completed and requested by DIRECTOR TECHNICAL. Readmit score is moderate, 4/8. DIRECTOR TECHNICAL met with pt's dtr at bedside. Sw role explained and contact info provided. See initial assessment. Pt was previously living at [facility]. Family does not want the pt to return there. They would like for the pt to go to [facility] for rehab as she has had decreased mobility. DIRECTOR TECHNICAL spoke with [facility]. They are aware of this patient and they are reviewing her for admission. Access provided. PPW on chart. PASSR completed. A: Pt who will likely require rehab due to decrease in functioning and mobility. P: Evolving; DIRECTOR TECHNICAL to continue to follow and assist with discharge planning. [facility] is reviewing for admission. NICKOLAS Sykes Addendum: 08/03/16 at 1457 by RAFAEL JONES SS Amended: Links added. Addendum: 08/04/16 at 1140 by RAFAEL JONES SS Pt's insurance is now listed as Medicare with [employer] supplement.
--- NOTE | 2016-08-03 16:14 | NUR ---
Case Management: Explained IMM to patient and many family/friends at the bedside at 1600. Family members refused to allow patient to sign stating pt's daughter/DPOA will sign when she returns. I will check in with patient later. Pebbles Guerrero RN Addendum: 08/03/16 at 1749 by PEBBLES GUERRERO IMM explained to daughter Sugey Richards who is DPOA, signed original placed in chart, copy given to Sugey. Pebbles Guerrero RN
--- NOTE | 2016-08-03 17:17 | NUR ---
Activity/Respiratory Patient maintaining SpO2 in the mid 90s on 6L oxymask. A&Ox3 but forgetful. Easily reoriented. All VSS. Patient denies pain/discomfort. SBA transfer from bed to chair. Currently sitting up in chiar watching the game with family, call light within pt reach.
[2016-08-03 19:09] LABS: TROPONIN T < 0.010 ug/L (0.0-0.011)
[2016-08-04] VITALS (11 sets, daily range): BP systolic 148–167; BP diastolic 62–72; PULSE 53–69; RESP 16–18; O2SAT 93–97
[2016-08-04] MEDS: Heparin 5,000 Unit/mL Inj SUBQ SCH ×3 (00:30→16:44)
[2016-08-04] MEDS: Sodium Chloride LOK Flush 10 mL Syringe IVFLUSH SCH ×3 (00:48→16:42)
--- NOTE | 2016-08-04 02:34 | NUR ---
OXYGEN Pt did not need BiPAP tonight. Pt sated mid to high 90's on 6L oxy-mask. Pt denied any pain, SR 70-80 with some PVC's, uneventful night. No other issues noted at this time
[2016-08-04 04:32] LABS: BASOPHILS % (AUTO) 0 % (0-3); EOSINOPHILS % (AUTO) 0 % (0-5); MONOCYTES % (AUTO) 11.1 % (4-12); Mean Corpuscular Hemoglobin 30.9 pg (27.0-35.0); NEUTROPHILS % (AUTO) 79.2 % (40-74); Platelet Count 265 bil/L (150-400)
[2016-08-04] MEDS: PrednisoLONE 1% 5 mL Ophthalmic Suspension BOTH_EYES SCH ×4 (05:43→20:03)
[2016-08-04] MEDS: Artificial Tears 15 mL Ophthalmic Solution AFFECT_EYE SCH ×4 (05:43→20:03)
--- NOTE | 2016-08-04 09:48 | PCM.PNMED ---
Subjective Date of Service August 04, 2016 Subjective 85y/o female with a history of hypertension, hyperlipidemia, and memory loss who presented to the emergency department from [facility] with increasing shortness of breath for the past week. Admitted for probable exacerbation of congestive heart failure and rule out ACS as well as pulmonary embolism. No acute events overnight. Per nursing, patient did not need BiPap and maintained O2 sats in high 90s on 6L oxy-mask. Sinus rhythm on telemetry with rate 70-80 with some PVCs. Exam Vital Signs Vital Sign - Last Date Time Temp Pulse Resp B/P Pulse Ox O2 Delivery O2 Flow Rate FiO2 08/04/16 08:45 53 18 93 Nasal Cannula 2.00 08/04/16 03:34 36.7 161/68 08/03/16 00:31 50 Intake and Output 08/03/16 08/03/16 08/04/16 Cumulative From/Thru 15:00 23:00 07:00 08/02/16 13:09 - 08/04/16 06:27 Intake Total 530 ml 100 ml 730 ml Output Total 300 ml 400 ml 1800 ml Balance 230 ml -300 ml -1070 ml Intake Oral 530 ml 100 ml 730 ml Output Urine Total 300 ml 400 ml 1800 ml # Bowel Movements 1 2 Exam General: Elderly female in no acute distress on 6L oxymask, well nourished, communicating appropriately, speaking in full sentences. HEENT: Normocephalic, atraumatic. PERRLA, moist conjunctivae, Oral mucosa moist/ pink. Neck: Supple, nontender, difficult to asses JVD due to body habitus but did not appreciate JVD for carotid bruits. Cardiovascular: Regular rate and rhythm with no murmurs, rubs, or gallops appreciated Pulmonary: Symmetric chest rise with equal air entry bilaterally, mild bibasilar crackles, no wheezing. Abdomen: Bowel tones present. Soft, protuberant, nontender,nondistended. Extremities: Warm, well perfused, no edema, clubbing or cyanosis. Skin: Normal temperature, turgor, and texture; no rashes or ulcerations. Neurological: Cranial nerves grossly intact. No focal deficits. Ambulates with a walker at baseline. IVs and Medications Medications Reviewed: Medications were reviewed in detail Lab and Diagnostics Laboratory Tests Test 08/03/16 10:00 08/03/16 18:05 08/04/16 00:34 08/04/16 04:15 Troponin T < 0.010ug/L (0.0-0.011) < 0.010ug/L (0.0-0.011) Sodium Level 121mEq/L (134-144) 124mEq/L (134-144) 125mEq/L (134-144) Potassium Level 5.9mEq/L (3.5-5.2) 5.1mEq/L (3.5-5.2) 5.0mEq/L (3.5-5.2) Chloride Level 84mEq/L (97-108) 87mEq/L (97-108) 87mEq/L (97-108) Carbon Dioxide Level 20mmol/L (18-29) 26mmol/L (18-29) 26mmol/L (18-29) Blood Urea Nitrogen 28mg/dL (8-27) 30mg/dL (8-27) 30mg/dL (8-27) Creatinine 0.89mg/dL (0.57-1.00) 0.95mg/dL (0.57-1.00) 0.96mg/dL (0.57-1.00) Estimat Glomerular Filtration Rate 87mL/min (>59) 80mL/min (>59) 79mL/min (>59) Glucose Level 165mg/dL (60-99) 156mg/dL (60-99) 138mg/dL (60-99) Calcium Level 8.6mg/dL (8.5-10.1) 8.1mg/dL (8.5-10.1) 8.4mg/dL (8.5-10.1) White Blood Count 10.8th/mm3 (3.8-10.1) Red Blood Count 3.37mil/mm3 (3.90-5.20) Hemoglobin 10.4g/dL (12.0-15.6) Hematocrit 30.0% (35.0-46.0) Mean Corpuscular Volume 89.0fL (81-100) Mean Corpuscular Hemoglobin 30.9pg (27.0-35.0) Mean Corpuscular Hemoglobin Concent 34.7% (32.0-37.0) Red Cell Distribution Width 12.8% (12.3-15.4) Platelet Count 265bil/L (150-400) Neutrophils (%) (Auto) 79.2% (40-74) Lymphocytes (%) (Auto) 9.5% (14-46) Monocytes (%) (Auto) 11.1% (4-12) Eosinophils (%) (Auto) 0% (0-5) Basophils (%) (Auto) 0% (0-3) Total Bilirubin 0.2mg/dL (0.0-1.2) Aspartate Amino Transf (AST/SGOT) 16U/L (0-50) Alanine Aminotransferase (ALT/SGPT) 11U/L (0-32) Alkaline Phosphatase 81U/L (25-165) Total Protein 5.7g/dL (6.4-8.4) Albumin 3.6g/dL (3.4-5.0) Result Diagram: 08/04/16 0415 08/04/16 0415 X-Rays, CTs and MRIs (08/02/16) X-RAY CHEST ONE VIEW, PORTABLE IMPRESSION: 1. Cardiomegaly and moderate vascular congestion with probable bilateral effusions and basilar atelectasis is suspicious for pulmonary edema/congestive heart failure and clinical correlation is recommended. 2. Please correlate clinically to exclude a superimposed pneumonia. Dictated and approved by: Manny Sawant M.D. on 08/02/2016 at 12:25 (08/02/16) CT ANGIO CHEST PULMONARY EMBOLISM IMPRESSION: 1. No evidence for central pulmonary emboli. 2. Small to moderate bilateral pleural effusions with bibasilar compression atelectasis. 3. Mild pulmonary edema consistent with clinical diagnosis of CHF. 4. Small hiatal hernia. Dictated and approved by: Yohannes Painter M.D. on 08/02/2016 at 17:48 Cardiac Echo Impressions (08/03/16) ECHOCARDIOGRAM REPORT Interpretation Summary The left ventricle is normal in size. The ejection fraction is estimated to be 55-60%. The right ventricle is borderline dilated. The right ventricular systolic function is normal. There is moderate tricuspid regurgitation. The right ventricular systolic pressure is estimated at 30 mmHg assuming a right atrial pressure of 3 mm Hg. Mild atherosclerotic plaque(s) in the ascending aorta. There is a moderate left-sided pleural effusion. There is a small right-sided pleural effusion. Reading Physician: Lynn Garvin on 08/03/2016 02:32 Assessment & Plan 85y/o female with a history of hypertension, hyperlipidemia, and memory loss who presented to the emergency department from [facility] with increasing shortness of breath for the past week. Admitted for probable exacerbation of congestive heart failure and rule out ACS as well as pulmonary embolism. 1. Acute hypoxic respiratory failure, present on admission. Improving -Likely secondary to CHF. Differential includes pulmonary embolism, pneumonia, or less likely asthma/COPD exacerbation. -CT angio- negative for pulmonary embolism. Pulmonary edema/pleural effusions on CXR and CT angio. -WBC 9.4, lactic acid 0.9 -pneumonia less likely -proBNP 4317 -Duonebs q4h prn -Tx underlying cause -Titrate off oxygen as tolerated. 2. Acute pulmonary edema. Present on admission. Improving. -Likely secondary to uncontrolled hypertension and new onset atrial fibrillation and diastolic dysfunction. -Patient without prior Echo. proBNP 4317, troponin trended down. -ECG, CXR and CT angio, as above. -Diuresed with IV furosemide 20mg x2. -Monitor I/Os, daily weights -Continue diuresis, oral furosemide 20mg daily. -Continue lisinopril, home diltiazem, statin and aspirin. -Echocardiogram, EF 55-60%. Dilated right ventricle and moderately dilated right atrium. 3. Hyponatremia. Present on admission. Improving. -Likely secondary to heart failure. Management as above. -Sodium 120, potassium 5.0 -Check serum and urine osmolality -Fluid restriction < 1L -Follow BMP 4. Elevated troponin, present on admission. Resolved. -Likely due to demand ischemia secondary to hypoxia, hypertension, respiratory failure. Patient without chest pain. -No known hx of coronary artery disease, possible carotid artery stenosis noted at PCP last month, ultrasound ordered- no results. -Trended down. -Recommend outpatient followup for carotid ultrasound. 5. Hyperglycemia. Present on admission. Improving. -No known diagnosis of diabetes, glucose 94 ([employer] 06/26/16) -Glucose 213, 312 now 138 -HbA1c 5.7 -Low dose correctional insulin lispro 6. Probable atrial fibrillation, present on admission. Active. -ECG by medics en route reportedly showed atrial fibrillation. Patient was given diltiazem prior to arrival. -Patient in NSR, rate 70-80s. ECG showed possible left atrial enlargement, no acute ischemic changes. -Continue home aspirin -Echocardiogram, as above. 7. Hypertension, chronic. Present on admission. Active. -BP 225/83 at presentation. 160s/70 today. -Continue home diltiazem, lisinopril and furosemide. 8. Hyperlipidemia, chronic. Present on admission. Presumed stable. -Continue home atorvastatin 9. Mild dementia, chronic. Present on admission. Active. -Continue home donepezil, memantine 10. Hypothyroidism, chronic. Present on admission. Presumed stable. -Continue home levothyroxine Acetaminophen-fever/headache/mild/moderate pain Antiemetics, as needed Bowel regimen, as needed. Disposition: Patient will likely discharge in 1-2 days pending echocardiogram results and improvement in respiratory status. Pain Evaluation: Adequate Pain Control VTE Prophylaxis: Sub-Q Heparin (Unfractionated) Resuscitation Status: CPR: Attempt Resuscitation Attending Statement The patient was seen and examined together with Resident/House-staff on 08/04/16 and I agree with the history, exam and plan as outlined in the note above. Caryl Key DO August 04, 2016 09:29 Jose London August 17, 2016 17:34
--- NOTE | 2016-08-04 22:25 | NUR ---
OXYGEN Pt sating in high 90's on 1L NC @ this time. Pt's vitals stable, denies pain, uneventful evening, no other issues noted at this time.
[2016-08-05] VITALS (9 sets, daily range): BP systolic 140–163; BP diastolic 56–71; PULSE 60–81; RESP 16–24; O2SAT 89–97
[2016-08-05] MEDS: Sodium Chloride LOK Flush 10 mL Syringe IVFLUSH SCH ×3 (02:42→18:03)
[2016-08-05] MEDS: Heparin 5,000 Unit/mL Inj SUBQ SCH ×3 (02:43→18:03)
[2016-08-05 04:54] LABS: BASOPHILS % (AUTO) 0.2 % (0-3); EOSINOPHILS % (AUTO) 1.1 % (0-5); MONOCYTES % (AUTO) 10.7 % (4-12); Mean Corpuscular Hemoglobin 30.7 pg (27.0-35.0); Mean Corpuscular Volume 89.7 fL (81-100); NEUTROPHILS % (AUTO) 74.1 % (40-74); Platelet Count 276 bil/L (150-400)
[2016-08-05] MEDS: PrednisoLONE 1% 5 mL Ophthalmic Suspension BOTH_EYES SCH ×4 (06:32→20:33)
[2016-08-05] MEDS: Artificial Tears 15 mL Ophthalmic Solution AFFECT_EYE SCH ×4 (06:32→20:32)
--- NOTE | 2016-08-05 10:04 | NUR ---
Evaluation completed. Please go to "Notes" then click on "Assessments and Notes" (bottom left corner of screen). Then select appropriate discipline tab on top of screen.
--- NOTE | 2016-08-05 12:58 | PCM.PNMED ---
Subjective Date of Service August 05, 2016 Subjective Ms. Galdamez is an 85-year-old lady with a history of hypertension, hyperlipidemia, and mild dementia who presented to the emergency department from [facility] living facility with increasing shortness of breath for the past week. Admitted for probable exacerbation of congestive heart failure and rule out ACS as well as pulmonary embolism. Patient had a restful evening with no acute events overnight. Per nursing, patient maintaining oxygen sats in mid 90s on 1L nasal cannula. Today patient is sitting up in a chair eating breakfast and states that she is doing well. She is still requiring supplemental oxygen with her oxygen sats dropping into the 80s on room air. She denies feeling short of breath, chest pain, abdominal pain, nausea, vomiting, dysuria, diarrhea or constipation. She does note that she is cold but denies fever or chills. Physical therapy is recommending discharge home to [facility] with home health physical therapy as needed. Exam Vital Signs Vital Sign - Last Date Time Temp Pulse Resp B/P Pulse Ox O2 Delivery O2 Flow Rate FiO2 08/05/16 08:51 Supplement Oxygen 08/05/16 08:51 36.6 65 17 162/68 89 08/05/16 02:39 1.00 08/03/16 00:31 50 Intake and Output 08/04/16 08/04/16 08/05/16 Cumulative From/Thru 15:00 23:00 07:00 08/02/16 13:09 - 08/05/16 05:52 Intake Total 640 ml 150 ml 1520 ml Output Total 850 ml 600 ml 3250 ml Balance -210 ml -450 ml -1730 ml Intake Oral 640 ml 150 ml 1520 ml Output Urine Total 850 ml 600 ml 3250 ml # Bowel Movements 1 1 4 Exam General: Elderly female in no acute distress on 1L nasal cannula, well nourished , communicating appropriately, speaking in full sentences. HEENT: Normocephalic, atraumatic. PERRLA, moist conjunctivae, Oral mucosa moist/ pink. Neck: Supple, nontender, no JVD or carotid bruits. Cardiovascular: Regular rate and rhythm with occasional premature beat, no murmurs, rubs, or gallops appreciated Pulmonary: Symmetric chest rise with equal air entry bilaterally, faint bibasilar crackles, no wheezing. Abdomen: Bowel tones present. Soft, protuberant, nontender,nondistended. Extremities: Warm, well perfused, no edema, clubbing or cyanosis. Skin: Normal temperature, turgor, and texture; no rashes or ulcerations. Neurological: Cranial nerves grossly intact. No focal deficits. Ambulates with a walker at baseline. Psychiatric: Normal mood and appropriate affect. Although forgetful at times, alert and oriented to person, place and time IVs and Medications Medications Reviewed: Medications were reviewed in detail Lab and Diagnostics Laboratory Tests Test 08/05/16 04:45 White Blood Count 10.5th/mm3 (3.8-10.1) Red Blood Count 3.58mil/mm3 (3.90-5.20) Hemoglobin 11.0g/dL (12.0-15.6) Hematocrit 32.1% (35.0-46.0) Mean Corpuscular Volume 89.7fL (81-100) Mean Corpuscular Hemoglobin 30.7pg (27.0-35.0) Mean Corpuscular Hemoglobin Concent 34.3% (32.0-37.0) Red Cell Distribution Width 13.0% (12.3-15.4) Platelet Count 276bil/L (150-400) Neutrophils (%) (Auto) 74.1% (40-74) Lymphocytes (%) (Auto) 13.6% (14-46) Monocytes (%) (Auto) 10.7% (4-12) Eosinophils (%) (Auto) 1.1% (0-5) Basophils (%) (Auto) 0.2% (0-3) Sodium Level 128mEq/L (134-144) Potassium Level 4.8mEq/L (3.5-5.2) Chloride Level 88mEq/L (97-108) Carbon Dioxide Level 25mmol/L (18-29) Blood Urea Nitrogen 28mg/dL (8-27) Creatinine 0.88mg/dL (0.57-1.00) Estimat Glomerular Filtration Rate 88mL/min (>59) Glucose Level 108mg/dL (60-99) Calcium Level 8.5mg/dL (8.5-10.1) Total Bilirubin 0.2mg/dL (0.0-1.2) Aspartate Amino Transf (AST/SGOT) 16U/L (0-50) Alanine Aminotransferase (ALT/SGPT) 12U/L (0-32) Alkaline Phosphatase 84U/L (25-165) Total Protein 5.6g/dL (6.4-8.4) Albumin 3.4g/dL (3.4-5.0) Microbiology 08/04/16 Stool Occult Blood (LISA) - negative Result Diagram: 08/05/1644408/05/16444 X-Rays, CTs and MRIs No new imaging. (08/02/16) X-RAY CHEST ONE VIEW, PORTABLE IMPRESSION: 1. Cardiomegaly and moderate vascular congestion with probable bilateral effusions and basilar atelectasis is suspicious for pulmonary edema/congestive heart failure and clinical correlation is recommended. 2. Please correlate clinically to exclude a superimposed pneumonia. Dictated and approved by: Manny Sawant M.D. on 08/02/2016 at 12:25 (08/02/16) CT ANGIO CHEST PULMONARY EMBOLISM IMPRESSION: 1. No evidence for central pulmonary emboli. 2. Small to moderate bilateral pleural effusions with bibasilar compression atelectasis. 3. Mild pulmonary edema consistent with clinical diagnosis of CHF. 4. Small hiatal hernia. Dictated and approved by: Yohannes Painter M.D. on 08/02/2016 at 17:48 Cardiac Echo Impressions (08/03/16) ECHOCARDIOGRAM REPORT Interpretation Summary The left ventricle is normal in size. The ejection fraction is estimated to be 55-60%. The right ventricle is borderline dilated. The right ventricular systolic function is normal. There is moderate tricuspid regurgitation. The right ventricular systolic pressure is estimated at 30 mmHg assuming a right atrial pressure of 3 mm Hg. Mild atherosclerotic plaque(s) in the ascending aorta. There is a moderate left-sided pleural effusion. There is a small right-sided pleural effusion. Reading Physician: Lynn Garvin on 08/03/2016 02:32 Assessment & Plan Ms. Galdamez is an 85-year-old lady with a history of hypertension, hyperlipidemia, and mild dementia who presented to the emergency department from [facility] with increasing shortness of breath for the past week. Admitted for probable exacerbation of congestive heart failure and rule out ACS as well as pulmonary embolism. 1. Acute hypoxic respiratory failure, present on admission. Improving -Likely secondary to CHF. Differential includes pulmonary embolism, pneumonia, or less likely asthma/COPD exacerbation. -CT angio- negative for pulmonary embolism. Pulmonary edema/pleural effusions on CXR and CT angio. -WBC 9.4, lactic acid 0.9 -pneumonia less likely -proBNP 4317 -Duonebs q4h prn -Tx underlying cause -Titrate off oxygen as tolerated. 2. Acute heart failure. Present on admission. Improving. -Likely secondary to uncontrolled hypertension and new onset atrial fibrillation and combined systolic/diastolic dysfunction. -Patient without prior Echo. proBNP 4317, troponin trended down. Echocardiogram (08/03), EF 55-60%. Dilated right ventricle and moderately dilated right atrium. -ECG, CXR and CT angio, as above. -Diuresed with IV furosemide 20mg x2. -Monitor I/Os, daily weights -Continue furosemide PO 20mg daily. -Continue lisinopril, statin and aspirin. -Stop diltiazem. -Start metoprolol tartrate 25mg twice daily. 3. Hyponatremia. Present on admission. Improving. -Likely secondary to heart failure and possibly SIADH. Management as above. -Sodium 120, potassium 5.0 at presentation. Now 128, 4.8 -Serum and urine osmolality, concerning for SIADH -Fluid restriction < 1L -Follow BMP 4. Pre-diabetes. Present on admission. Presumed stable. -Hyperglycemia without prior diagnosis of diabetes, glucose 94 ([employer] 06/26/16) -Glucose 213, 312 now 108 -HbA1c 5.7 -Low dose correctional insulin lispro 5. Probable atrial fibrillation, present on admission. Presumed stable -ECG by medics en route reportedly showed atrial fibrillation. Patient was given diltiazem prior to arrival. -Patient in NSR, rate 70-80s. ECG showed possible left atrial enlargement, no acute ischemic changes. -Continue home aspirin -Echocardiogram, as above. 6. Hypertension, chronic. Present on admission. Improving -BP 225/83 at presentation. 160s/70 today. -Stop diltiazem. -Start metoprolol tartrate 25mg twice daily -Continue lisinopril 10mg daily and furosemide 20mg po daily 7. Hyperlipidemia, chronic. Present on admission. Presumed stable. -Continue home atorvastatin 8. Mild dementia, chronic. Present on admission. Active. -Continue home donepezil, memantine 9. Hypothyroidism, chronic. Present on admission. Presumed stable. -Continue home levothyroxine 10. Elevated troponin, present on admission. Resolved. -Likely due to demand ischemia secondary to hypoxia, hypertension, respiratory failure. Patient without chest pain. -No known hx of coronary artery disease, possible carotid artery stenosis noted at PCP last month, ultrasound ordered- no results. -Trended down. -Recommend outpatient followup for carotid ultrasound. Acetaminophen-fever/headache/mild/moderate pain Antiemetics, as needed Bowel regimen, as needed. Disposition: Patient will likely discharge in 1-2 days improvement in respiratory status and medication adjustments. Pain Evaluation: Adequate Pain Control VTE Prophylaxis: Sub-Q Heparin (Unfractionated) Resuscitation Status: CPR: Attempt Resuscitation Attending Statement The patient was seen and examined together with Dr. Key on 08/05/2016 and I agree with the history, exam and plan as outlined in the note above. . Caryl Key DO August 05, 2016 10:06 Oliver Jimenez MD August 06, 2016 15:46
--- NOTE | 2016-08-05 16:12 | NUR ---
Family Call, Multidisciplinary Communication 0930 - Discussed her care with the multidisciplinary team on morning rounds. 1200 - Called her daughter Sugey back as she had called earlier. After the patient gave her consent for information to be given to her she was given an update on the patient's status and care. She said she would be in later to see her. Care continues.
--- NOTE | 2016-08-05 16:17 | NUR ---
Social Work: Continued Discharge Planning Data & Assessment: log chain worker spoke with Flora at [facility] and notified her that the patient is currently walking 200 feet. Flora stated that they will be able to accept patient for penitent[facility]. SW notified patient's daughter Sugey Richards and she was in agreement and voiced understanding. SW will continue to follow and assist patient throughout stay. Plan: Patient will likely discharge to [facility] when discharged. SW will continue to follow and assist patient throughout stay. Anabella Rodriguez, MARGOT, ACM
[2016-08-06 00:05] VITALS: BP 184/115; PULSE 74; RESP 24; O2SAT 96
[2016-08-06 00:12] VITALS: PULSE 74
[2016-08-06 00:35] VITALS: BP 157/62; PULSE 65
[2016-08-06] MEDS ORDERED: Labetalol 5 mg/mL 4 mL Inj IVPUSH PRN (00:40)
--- NOTE | 2016-08-06 00:40 | NUR ---
Blood Pressure BP at 0000 noted to be 184/115 with a HR of 74. Dr. Landrum paged @ [phone]. Order received for Labetalol 5mg IVP if BP still high at recheck. BP rechecked @ 0035 and noted to be 157/62 with a HR of 65. Labetalol held at this time.
[2016-08-06] MEDS: Sodium Chloride LOK Flush 10 mL Syringe IVFLUSH SCH ×2 (01:09→09:42)
[2016-08-06] MEDS: Heparin 5,000 Unit/mL Inj SUBQ SCH ×2 (01:09→09:41)
[2016-08-06 03:45] LABS: BASOPHILS % (AUTO) 0.3 % (0-3); EOSINOPHILS % (AUTO) 1.8 % (0-5); MONOCYTES % (AUTO) 10.7 % (4-12); Mean Corpuscular Hemoglobin 30.1 pg (27.0-35.0); NEUTROPHILS % (AUTO) 68.5 % (40-74); Platelet Count 312 bil/L (150-400)
[2016-08-06 04:23] VITALS: BP 164/62; PULSE 70; RESP 20; O2SAT 96
[2016-08-06] MEDS: PrednisoLONE 1% 5 mL Ophthalmic Suspension BOTH_EYES SCH ×2 (06:10→11:45)
[2016-08-06] MEDS: Artificial Tears 15 mL Ophthalmic Solution AFFECT_EYE SCH ×2 (06:10→11:45)
[2016-08-06 09:38] VITALS: BP 175/71; PULSE 73; RESP 18; O2SAT 92
[2016-08-06 09:57] VITALS: PULSE 70
--- NOTE | 2016-08-06 10:17 | NUR ---
[facility] signed
[2016-08-06] MEDS ORDERED: FUR20 PO (13:36)
[2016-08-06] MEDS ORDERED: METO25TA6 PO (13:36)
[2016-08-06] MEDS ORDERED: LISI-571 PO (13:36)
[2016-08-06] MEDS ORDERED: AMLO5TAB2 PO (13:36)
--- NOTE | 2016-08-06 13:43 | PCM.DIMED ---
Jd Melendez DO 08/06/16 1343: Discharge Instructions Date of Service August 06, 2016 Dates of Hospitalization August 02, 2016 at 16:32 Discharge Diagnosis Discharge Diagnosis New heart failure (we have added medications to your regimen to treat this). This is what made it difficult to you to breathe when you first came to the hospital. High blood pressure (we have adjusted your medications to treat this). Medication Instructions Start the following medications: Amlodipine 5 mg tablet once a day in the morning Furosemide 20 mg tablet once a day in the morning Lisinopril 10 mg tablet once a day in the morning Metoprolol 25 mg tablet twice a day (morning and evening) Stop the following medications: Diltiazem 60 mg tablet twice daily Continue all other medications as before. Diet Heart Healthy, Diabetic Activity Other (physical therapy at [facility]) Call your provider Fever or Chills, Shortness of breath, Bleeding, Chest pain, Vomitting, Excessive diarrhea, Weakness (unilateral), Other (if you experience any new or concerning symptoms, please call your doctor, or return to the hospital.) Patient Instructions Follow-up plan Please follow up with Dr. Beckford at [place]. * I will send him a summary of your hospital course and changes in medications. Please follow-up with heart failure clinic. They will be contacted and will be in touch with you andrea Veda. Oliver Jimenez MD 08/06/16 1543: Discharge Instructions Attending's Statement The patient was seen and examined together with Dr. Gar on 08/06/2016 and I agree with the history, exam and plan as outlined in the note above. . Jd Melendez DO August 06, 2016 13:43 Oliver Jimenez MD August 06, 2016 15:43
--- NOTE | 2016-08-06 14:03 | NUR ---
Social Work: Discharge Data & Assessment: SW met with patient and patient's daughter at bedside to discuss discharge. Patient will discharge to [place] [facility] via daughter's POV. SW faxed discharge paperwork and PASRR to [place]. SW with Flora in admissions and she is aware that patient is discharging. Patient will be followed by Dr. Beckford at [facility]. SW will continue to follow and assist patient. Plan: Patient will discharge to [facility] via POV. SW will continue to follow. Anabella Rodriguez LMSW, TETO
--- NOTE | 2016-08-06 14:14 | NUR ---
Discharge Patient left unit with SOUND [employer]ECT[employer] MANAGER via wheelchair and transferred to [facility] via daughter in a stable condition. Patient removed both of her own IV's earlier this AM after discharge discussion with MD, VERONIKA reported this to RN-- sites appear intact with no swelling/redness, patient denies pain. Tele removed, all personal belongings with patient. Paper work including body sheet and new prescriptions of Lasix, Lisinopril, Amlodipine and Metoprolol are with daughter who verbalized understanding that she will hand this paperwork to [facility] staff.
--- NOTE | 2016-08-07 15:23 | PCM.DC.MED ---
Discharge Summary Date of Service August 07, 2016 Dates of Hospitalization Date of Hospital Admission August 02, 2016 at 16:32 Date of Discharge: August 06, 2016 Providers: Admitting Physician: Jose London Primary Care Physician: Sagrario Carrera PA-C Attending Physician: Jose London Diagnosis at Time of Discharge Diagnosis at Time of Discharge 1. Acute hypoxic respiratory failure 2. Acute diastolic heart failure 3. Hyponatremia 4. Pre-diabetes 5. Hypertension, chronic. 6. Hyperlipidemia, chronic. 7. Mild dementia, chronic. 8. Hypothyroidism, chronic. 9. Elevated troponin, present on admission. Resolved. Procedures XRay, CTs & MRIs (08/02/16) X-RAY CHEST ONE VIEW, PORTABLE IMPRESSION: 1. Cardiomegaly and moderate vascular congestion with probable bilateral effusions and basilar atelectasis is suspicious for pulmonary edema/congestive heart failure and clinical correlation is recommended. 2. Please correlate clinically to exclude a superimposed pneumonia. Dictated and approved by: Manny Sawant M.D. on 08/02/2016 at 12:25 (08/02/16) CT ANGIO CHEST PULMONARY EMBOLISM IMPRESSION: 1. No evidence for central pulmonary emboli. 2. Small to moderate bilateral pleural effusions with bibasilar compression atelectasis. 3. Mild pulmonary edema consistent with clinical diagnosis of CHF. 4. Small hiatal hernia. Dictated and approved by: Yohannes Painter M.D. on 08/02/2016 at 17:48 Cardiac Echo Impression (08/03/16) ECHOCARDIOGRAM REPORT Interpretation Summary The left ventricle is normal in size. The ejection fraction is estimated to be 55-60%. The right ventricle is borderline dilated. The right ventricular systolic function is normal. There is moderate tricuspid regurgitation. The right ventricular systolic pressure is estimated at 30 mmHg assuming a right atrial pressure of 3 mm Hg. Mild atherosclerotic plaque(s) in the ascending aorta. There is a moderate left-sided pleural effusion. There is a small right-sided pleural effusion. Reading Physician: Lynn Garvin on 08/03/2016 02:32 Brief History The following is taken from Dr. Key's H&P dated 08/02/2016: Ms. Galdamez is an 85-year-old lady with a history of hypertension, hyperlipidemia, and memory loss who presented to the emergency department from [facility] with increasing shortness of breath for the past week. She is accompanied by her her daughter Sugey, who is also DPOA and history obtained from patient and daughter. Patient has limited records within our EMR. Per her daughter, patient's shortness of breath historically has been only with exertion. However, she notes a steady decline in the past 6 months to a year with decreased stamina and dyspnea at rest for the past week. Patient denies associated symptoms including: chest pain, palpitation, cough, orthopnea , lower extremity edema, fever or chills. She states that she smoked tobacco from age 41 to 61 and denies diagnosis of COPD. Daughter reports mild dementia and denies history of diabetes, atrial fibrillation and COPD but notes increased urinary incontinence. Patient denies dysuria, hematuria, back or flank pain, diarrhea and constipation. Of note patient states that she had cataract surgery on 07/28. She states that she tolerated the procedure well and it was without complications. Both patient and daughter report elevated blood pressure prior and her diltiazem increased to 60mg twice daily by her PCP. Despite this increase she continued to have elevated blood pressures. She reports a change in vision following her cataract surgery but denies headaches, dizziness, numbness, tingling or focal weakness. Per medics, atrial fibrillation noted on ECG in the field. She was given diltiazem and ECG here showed normal sinus rhythm with rate of 73 and probable left atrial enlargement but no acute ischemic changes. Chest xray showing cardiomegaly and pulmonary edema. CT angio is negative for pulmonary embolism and showing mild pulmonary edema and bilateral pleural effusions. In the ED: vitals 36.2, BP 225/83, HR 55, SpO2 55% on room air, 95% on Bipap, Labs: troponin 0.023, proBNP 4317, wbc 13.5, Hb 11.3, Hct 33.1, plts 327, sodium 120, potassium 4.6, chloride 81, bicarb 23, BUN 19, creatinine 0.79, glucose 213, lactic acid 0.9. She was given Solu-medol 125mg IV, duonebs, 20mg IV furosemide. Hospital Course 1. Acute hypoxic respiratory failure, present on admission. Resolved -Clinical presentation at time of admission was consistent with congestive heart failure. Echocardiogram subsequently obtained did not demonstrate any systolic dysfunction but did demonstrate some measurement parameters consistent with a possible diastolic dysfunction. Other potential diagnoses were ruled out effectively with a CT angiogram, and lack of any clinical indicators of infection. No indication at this time of asthma or COPD. Medications were optimized as noted below, and patient was tolerating all medications well prior to discharge. Given her stability, and response to therapy, appropriately discharged from the hospital. 2. Acute heart failure. Present on admission. Improving. -As noted above likely diastolic. Secondary to her hypertension. There is some question prior to presentation of possible atrial fibrillation (EMS reported that she was in A. fib), but no further demonstration of the same all here. See echocardiogram above, and the send of her clinical presentation and elevated BNP. Medications optimized as noted. Please note, diltiazem was stopped in the setting of heart failure. 3. Hyponatremia. Present on admission. Resolved. -Likely secondary to some fluid overload in the setting of heart failure. Serum and urine osmolality laboratory values indicative of potential concomitant SIADH, and for that reason fluid restriction implemented. 4. Pre-diabetes. Present on admission. Presumed stable. -Managed with low dose correctional insulin while here, but given her A1c of 5.7 , further medication management was implemented. She was encouraged to watch diet, stay active, and follow-up with primary care. 5. Probable atrial fibrillation, present on admission. Presumed stable -As noted above, EMS noted A. fib, but remained largely in normal sinus rhythm during her entire hospitalization. Echo did demonstrate atrial enlargement in the setting of hypertension. We continued her home aspirin, and encouraged her to follow-up with her primary care physician regarding further discussion about anticoagulation. Please see echo above. 6. Hypertension, chronic. Present on admission. Improving -Systolic blood pressures significantly elevated at the time of presentation. As noted above her diltiazem was held in the setting of heart failure (diastolic ), and metoprolol initiated instead. Medications were continued including lisinopril and furosemide. 7. Hyperlipidemia, chronic. Present on admission. Presumed stable. -Continued home atorvastatin 8. Mild dementia, chronic. Present on admission. Active. -Continued home donepezil, memantine 9. Hypothyroidism, chronic. Present on admission. Presumed stable. -Continued home levothyroxine 10. Elevated troponin, present on admission. Resolved. -Likely due to demand ischemia secondary to hypoxia, hypertension. Patient without chest pain. At time of discharge, patient was eating and drinking without difficulty, voiding and stooling without problem, ambulating with minimal assistance, and pain-free. She was tolerating all of her medications well. Exam Vital Signs (Last) Date Time Temp Pulse Resp B/P Pulse Ox O2 Delivery O2 Flow Rate FiO2 08/06/16 09:57 70 08/06/16 09:38 36.4 18 175/71 92 Room Air 08/05/16 19:37 0.50 08/03/16 00:31 50 Exam Physical exam at time of discharge: General: Elderly female in no acute distress on room air, well nourished, communicating appropriately, speaking in full sentences. HEENT: Normocephalic, atraumatic. PERRL, moist conjunctivae, Oral mucosa moist/ pink. Neck: Supple, nontender, no JVD or carotid bruits. Cardiovascular: Regular rate and rhythm with occasional premature beat on monitor, no murmurs, rubs, or gallops appreciated Pulmonary: Symmetric chest rise with equal air entry bilaterally, faint bibasilar crackles, no wheezing. Abdomen: Bowel tones present. Soft, protuberant, nontender,nondistended. Extremities: Warm, well perfused, no edema, clubbing or cyanosis. Skin: Normal temperature, turgor, and texture; no rashes or ulcerations. Neurological: Cranial nerves grossly intact. No focal deficits. Ambulates with a walker at baseline. Psychiatric: Normal mood and appropriate affect. Although forgetful at times, alert and oriented to person, place and time Test 08/02/16 13:18 08/02/16 13:30 08/02/16 13:33 08/02/16 13:54 Prothrombin Time 10.2sec (8.1-12.5) Prothromb Time International Ratio 0.95ratio D-Dimer 1.31mg/L FEU (<0.50) Magnesium Level 1.8mg/dL (1.6-2.6) Pro-B-Type Natriuretic Peptide 4317pg/mL (0-738) Hemoglobin A1c 5.7% (4.8-5.6) Lactic Acid Level 0.9mmol/L (0.4-2.0) Urine Osmolality 580mOs/kH2O (250-1200) Urine Random Sodium 48mEq/L Osmolality 262 (275-300) Test 08/02/16 14:01 08/03/16 00:00 08/03/16 02:19 08/03/16 18:05 Urine Color Yellow (YELLOW) Urine Appearance Hazy (CLEAR,HAZY) Urine pH 6.0 (5.0-8.0) Urine Specific [place] 1.030 (1.003-1.035) Urine Protein 300mg/dL (NEG,TRACE) Urine Glucose (UA) 250mg/dL (NEGATIVE) Urine Ketones Negativemg/dL (NEGATIVE) Urine Occult Blood Trace (NEGATIVE) Urine Nitrite Negative (NEGATIVE) Urine Bilirubin Negative (NEGATIVE) Urine Urobilinogen Normalmg/dL (NORMAL) Urine Leukocyte Esterase Negative (NEGATIVE) Urine RBC 0-2/hpf (0-2) Urine WBC 0-5/hpf (0-5) Urine Epithelial Cells Occasional/hpf (NONE-MOD) Urine Crystals Amorphous urates (NONE Urine Bacteria Few/hpf (NONE-FEW) Urine Hyaline Casts None/lpf (NONE) Urine Granular Casts None seen (NONE SEEN) Urine Waxy Casts None seen (NONE SEEN) Urine Red Blood Cell Casts None seen (NONE SEEN) Urine White Blood Cell Casts None seen (NONE SEEN) Urine Mucus None seen (None Seen) Urine Trichomonas None seen (NONE SEEN) Urine Yeast None (NONE SEEN) Urinalysis Comment None Urine Culture Reflexed Not indicated Hold Purple Top Tube Received (Received) Hold [place] Top Tube Received (Received) Phosphorus Level 4.8mg/dL (2.5-4.9) Triglycerides Level 54mg/dL (0-149) Cholesterol Level 170mg/dL (100-199) LDL Cholesterol, Calculated 54.200mg/dL (0-99) VLDL Cholesterol 10.800mg/dL HDL Cholesterol 105mg/dL (>39) Cholesterol/HDL Ratio 1.62 (0.0-4.4) Procalcitonin 0.08ng/mL (0.00-0.08) Troponin T < 0.010ug/L (0.0-0.011) Test 08/04/16 04:15 08/06/16 03:42 Thyroid Stimulating Hormone (TSH) 2.400uIU/mL (0.450-4.500) Free Thyroxine 1.16ng/dL (0.82-1.77) White Blood Count 9.6th/mm3 (3.8-10.1) Red Blood Count 3.76mil/mm3 (3.90-5.20) Hemoglobin 11.3g/dL (12.0-15.6) Hematocrit 34.2% (35.0-46.0) Mean Corpuscular Volume 91.0fL (81-100) Mean Corpuscular Hemoglobin 30.1pg (27.0-35.0) Mean Corpuscular Hemoglobin Concent 33.0% (32.0-37.0) Red Cell Distribution Width 13.1% (12.3-15.4) Platelet Count 312bil/L (150-400) Neutrophils (%) (Auto) 68.5% (40-74) Lymphocytes (%) (Auto) 18.6% (14-46) Monocytes (%) (Auto) 10.7% (4-12) Eosinophils (%) (Auto) 1.8% (0-5) Basophils (%) (Auto) 0.3% (0-3) Sodium Level 136mEq/L (134-144) Potassium Level 4.7mEq/L (3.5-5.2) Chloride Level 96mEq/L (97-108) Carbon Dioxide Level 25mmol/L (18-29) Blood Urea Nitrogen 24mg/dL (8-27) Creatinine 0.82mg/dL (0.57-1.00) Estimat Glomerular Filtration Rate 95mL/min (>59) Glucose Level 117mg/dL (60-99) Calcium Level 8.9mg/dL (8.5-10.1) Total Bilirubin 0.2mg/dL (0.0-1.2) Aspartate Amino Transf (AST/SGOT) 13U/L (0-50) Alanine Aminotransferase (ALT/SGPT) 11U/L (0-32) Alkaline Phosphatase 84U/L (25-165) Total Protein 5.6g/dL (6.4-8.4) Albumin 3.3g/dL (3.4-5.0) Discharge Medications Discharge Medications Amlodipine (Amlodipine) 5 Mg Tablet 5 MG PO DAILY Prescribed by: DO Carolina ROSS Calcium (Vitamin C) 500 Mg Tablet 500 MG PO DAILY (Reported) Aspirin (Aspirin) 81 Mg Tablet 81 MG PO DAILY (Reported) Atorvastatin (Lipitor) 20 Mg Tablet 20 MG PO DAILY (Reported) Calcium Carbonate/Vitamin D3 (Calcium 500 + Vit D 400 Tablet) 1 Each Tablet 1 EACH PO DAILY (Reported) Cholecalciferol (Vitamin D3) (Vitamin D) 50,000 Unit Capsule 50,000 UNIT PO 2x/ month (Reported) Donepezil (Donepezil) 10 Mg Tablet 10 MG PO HS (Reported) Furosemide (Furosemide) 20 Mg Tab 20 MG PO DAILY Prescribed by: HENRIK GAR DO Hypromellose (Systane Gel) 10 Gm Gel..gram. 1 APPLIC OCULAR QID (Reported) Levothyroxine (Levothyroxine) 75 Mcg Tablet 75 MCG PO DAILY (Reported) Lisinopril (Lisinopril) 5 Mg Tablet 10 MG PO DAILY Prescribed by: HENRIK GAR DO Memantine HCl (Namenda-XR) 28 Mg Cap.spr.24 28 MG PO HS (Reported) Metoprolol Tartrate (Metoprolol Tartrate) 25 Mg Tablet 25 MG PO BID Prescribed by: HENRIK GAR DO Ofloxacin (Ofloxacin) 5 Ml Drops 1 DROP OCULAR QID (Reported) [place]-3/Dha/Epa/Fish Oil (Fish Oil 500 mg Softgel) 1 Each Capsule 3 EACH PO DAILY (Reported) Oxybutynin Chloride ER (Oxybutynin Chloride ER) 10 Mg Tab.er.24 10 MG PO DAILY ( Reported) Prednisolone Acetate (Prednisolone Acetate) 5 Ml Drops.susp 1 DROP OCULAR QID ( Reported) As needed Acetaminophen (Acetaminophen) 325 Mg Capsule 1-2 EACH PO Q4H PRN PRN For Pain ( Reported) Dextran 70/Hypromellose/Pf (Artificial Tears Drops) 1 Each Droperette 1 DROP BOTH_EYES QID PRN PRN For Eye Irritation (Reported) Docusate Sodium (Colace) 100 Mg Capsule 100 MG PO DAILY PRN PRN For Constipation (Reported) Additional med instructions Start the following medications: Amlodipine 5 mg tablet once a day in the morning Furosemide 20 mg tablet once a day in the morning Lisinopril 10 mg tablet once a day in the morning Metoprolol 25 mg tablet twice a day (morning and evening) Stop the following medications: Diltiazem 60 mg tablet twice daily Continue all other medications as before. Followup Plan Disposition: [facility] Follow-up plan Please follow up with Dr. Beckford at [place]. * I will send him a summary of your hospital course and changes in medications. Please follow-up with heart failure clinic. They will be contacted and will be in touch with you andrea Mccollum. Discharge Diet: Heart Healthy, Diabetic Discharge Activity: Other (physical therapy at SNF) Time spent Greater than 30 minutes was spent in preparation of discharge with greater than 50% of that time dedicated to patient counseling and coordination of care. . Attending Statement The patient was seen and examined together with Dr. Gar on 08/06/2016 and I agree with the history, exam and plan as outlined in the note above. . copies to: Louisa Beckford MD, Collin T DO August 07, 2016 15:04 Oliver Jimenez MD August 07, 2016 17:04
== END 2016-08-06 13:50 | DRG 189 ==
LOC: SED 12:59 → PCC 16:32
PROVIDERS: ADMIT Internal Medicine; ATTEND Internal Medicine
PROC: 5A09357 Assistance with Respiratory Ventilation, Less than 24 Consecutive Hours, Continuous Positive Airway Pressure (ICD-10-PCS; principal; 2016-08-02)
DX: J96.01 Acute respiratory failure with hypoxia (principal); I50.31 Acute diastolic (congestive) heart failure; E87.1 Hypo-osmolality and hyponatremia; I10 Essential (primary) hypertension; E78.5 Hyperlipidemia, unspecified; R32 Unspecified urinary incontinence; E03.9 Hypothyroidism, unspecified; R73.9 Hyperglycemia, unspecified; F03.90 Unspecified dementia, unspecified severity, without behavioral disturbance, psychotic disturbance, mood disturbance, and anxiety; Z79.82 Long term (current) use of aspirin; Z87.891 Personal history of nicotine dependence